=== PATIENT | female | born 1980 | race Caucasian/White ===

== ENCOUNTER 2017-03-14 15:14 | Emergency (ER) | payer MEDICAID ==
[2017-03-14 15:58] LABS: URINE APPEARANCE CLEAR; URINE BILIRUBIN NEGATIVE (NEGATIVE); URINE BLOOD NEGATIVE (NEGATIVE); URINE COLOR YELLOW; URINE GLUCOSE (UA) NEGATIVE (NEGATIVE); URINE KETONE NEGATIVE (NEGATIVE); URINE LEUKOCYTE ESTERASE NEGATIVE (NEGATIVE); URINE NITRITE NEGATIVE (NEGATIVE); URINE PROTEIN NEGATIVE (NEGATIVE); URINE UROBILINOGEN 0.2 E.U./dL (0.20 - 1.00)
[2017-03-14 16:50] LABS: HCG,QUALITATIVE URINE NEGATIVE (NEGATIVE)
[2017-03-14] MEDS ORDERED: KETOROLAC 30 MG/ML VIAL IVP ONE (17:01)
[2017-03-14] MEDS ORDERED: 0.9 % SODIUM CHLORIDE 1,000 ML BAG IV ONE (17:01)
--- NOTE | 2017-03-14 17:34 | Emergency Department Record ---
History of Present Illness - General Chief complaint: Flank Pain Stated complaint: THINKS SHE HAS KIDNEY INFECTION Time Seen by Provider: 03/14/17 16:44 Source: Patient Mode of Arrival: Ambulatory Limitations: No limitations - History of Present Illness Initial comments: pt has had l flank pain for 7 days. it is unlike anything she has ever had. she states the pain is not reproducible , that it is deep Onset/Timin -: Days(s) Radiation: L flank, LLQ Severity: Mild Severity scale (1-10): 6 Quality: Burning, Dull, Stabbing Consistency: Constant, Getting worse Improves with: None Worsens with: Movement Patient : No Associated Symptoms: Denies other symptoms Travel Screening - Travel/Exposure Within Last 30 Days Have you traveled within the last 30 days?: No - Travel/Exposure Within Last Year Have you traveled outside the [place] in the last year?: No - Additonal Travel Details Have you been exposed to anyone with a communicable illness?: No - Travel Symptoms Symptom Screening: None Review of Systems Reviewed: No additional complaints except as noted below Constitutional: Reports: As per HPI. Denies: Chills, Fever, Malaise, Night sweats, Weakness, Weight change Eyes: Reports: As per HPI. Denies: Eye discharge, Eye pain, Photophobia, Vision change ENT: Reports: As per HPI. Denies: Congestion, Dental pain, Ear pain, Epistaxis , Hearing loss, Throat pain Respiratory: Reports: As per HPI. Denies: Cough, Dyspnea, Hemoptysis, Stridor, Wheezes Cardiovascular: Reports: As per HPI. Denies: Arrhythmia, Chest pain, Dyspnea on exertion, Edema, Murmurs, Orthopnea, Palpitations, Paroxysmal nocturnal dyspnea, Rheumatic Fever, Syncope Endocrine: Reports: As per HPI. Denies: Fatigue, Heat or cold intolerance, Polydipsia, Polyuria Gastrointestinal: Reports: As per HPI. Denies: Abdominal pain, Constipation, Diarrhea, Hematemesis, Hematochezia, Melena, Nausea, Vomiting Genitourinary: Reports: As per HPI. Denies: Abnormal menses, Discharge, Dyspareunia, Dysuria, Frequency, Hematuria, Incontinence, Retention, Urgency Musculoskeletal: Reports: As per HPI. Denies: Arthralgia, Back pain, Gout, Joint swelling, Myalgia, Neck pain Skin: Reports: As per HPI. Denies: Bruising, Change in color, Change in hair/ nails, Lesions, Pruritus, Rash Neurological: Reports: As per HPI. Denies: Abnormal gait, Confusion, Headache, Numbness, Paresthesias, Seizure, Tingling, Tremors, Vertigo, Weakness Psychiatric: Reports: As per HPI. Denies: Anxiety, Auditory hallucinations, Depression, Homicidal thoughts, Suicidal thoughts, Visual hallucinations Hematological/Lymphatic: Reports: As per HPI. Denies: Anemia, Blood Clots, Easy bleeding, Easy bruising, Swollen glands Past Medical History - SOCIAL HISTORY Smoking Status: Current every day smoker Alcohol Use: Occasional Drug Use: None - RESPIRATORY Hx Respiratory Disorders: No - CARDIOVASCULAR Hx Cardio Disorders: No - NEURO Hx Neuro Disorders: Yes Hx Headaches: Yes (cluster headaches) - GI Hx GI Disorders: No - Hx Genitourinary Disorders: No - ENDOCRINE Hx Endocrine Disorders: No - MUSCULOSKELETAL Hx Back Injury: Yes - PSYCH Hx Psych Problems: Yes Hx Anxiety: Yes Hx Depression: Yes - HEMATOLOGY/ONCOLOGY Hx Hematology/Oncology Disorders: No Family Medical History Any Significant Family History?: No Physical Exam - General General Appearance: Alert, Oriented x3, Cooperative, Mild distress - Head Head exam: Normal inspection - Eye Eye exam: Normal appearance, PERRL, EOMI Pupils: Normal accommodation - ENT ENT exam: Normal exam, Mucous membranes moist, Normal external ear exam, Normal orophraynx Ear exam: Normal external inspection. negative: External canal tenderness Nasal Exam: Normal inspection. negative: Discharge, Sinus tenderness Mouth exam: Normal external inspection, Tongue normal Teeth exam: Normal inspection. negative: Dental caries Throat exam: Normal inspection. negative: Tonsillar erythema, Tonsillar exudate - Neck Neck exam: Normal inspection, Full ROM. negative: Tenderness - Respiratory Respiratory exam: Normal lung sounds bilaterally. negative: Respiratory distress - Cardiovascular Cardiovascular Exam: Regular rate, Normal rhythm, Normal heart sounds - GI/Abdominal GI/Abdominal exam: Soft, Normal bowel sounds. negative: Tenderness - Rectal Rectal exam: Deferred - exam: Deferred - Extremities Extremities exam: Normal inspection, Full ROM, Normal capillary refill. negative: Tenderness - Back Back exam: Reports: Normal inspection, CVA tenderness (L), Full ROM. Denies: Muscle spasm, Rash noted, Tenderness - Neurological Neurological exam: Alert, CN II-XII intact, Normal gait, Oriented X3 - Psychiatric Psychiatric exam: Normal affect, Normal mood - Skin Skin exam: Dry, Intact, Normal color, Warm Course Vital Signs 03/14/17 16:24 Temperature 98.0 F Pulse Rate 76 Respiratory 18 Rate Blood Pressure 101/71 Pulse Ox 99 - Reevaluation(s) Reevaluation #1: 03/14/17 19:02 pt feels much better Medical Decision Making - Lab Data Result diagrams: 03/14/17 17:45 03/14/17 17:45 Lab Results 03/14/17 Range/Units 15:35 Urine Color Yellow Urine Appearance Clear Urine pH 6.5 (5.0-8.0) Ur Specific [place] 1.010 (1.002-1.030) Urine Protein Negative (NEGATIVE) Urine Glucose (UA) Negative (NEGATIVE) Urine Ketones Negative (NEGATIVE) Urine Blood Negative (NEGATIVE) Urine Nitrite Negative (NEGATIVE) Urine Bilirubin Negative (NEGATIVE) Urine Urobilinogen 0.2 (0.20 - 1.00) E.U./dL Ur Leukocyte Esterase Negative (NEGATIVE) Urine HCG, Qual Negative (NEGATIVE) Disposition Disposition: Discharge Clinical Impression: Flank pain Disposition: Home, Self-Care Condition: (1) Good Instructions: Flank Pain (ED) Additional Instructions: follow up with family doctor. return sooner if worse. parker for pain Quality - Quality Measures Quality Measures: N/A - Blood Pressure Screening Does Patient Have Any of the Following: No Blood Pressure Classification: Normal BP Reading Systolic Measurement: 101 Diastolic Measurement: 71 Screening for High Blood Pressure: < Normal BP, F/U Not Required > [G8783]
[2017-03-14 18:32] LABS: BASO % 0.3 % (0-6); EOS % 2.2 % (0-6); GRAN % 55.4 % (47-80); HEMATOCRIT 44.5 % (35.0-47.0); HEMOGLOBIN 14.8 gm/dl (11.6-16.0); LYMPH % 36.6 % (16-45); MEAN CELL VOLUME 93.1 fl (81-97); MEAN CORPUSCULAR HGB CONC 33.3 g/dl (32-36); MEAN PLATELET VOLUME 9.3 fl (7.4-10.4); MONO % 5.5 % (0-9); PLATELET COUNT 235 K/uL (130-400); RED BLOOD COUNT 4.78 M/uL (3.80-5.40); RED CELL DISTRIBUTION WIDTH 13.1 % (11.5-14.5); WHITE BLOOD COUNT W/O DIFF 6.9 K/uL (4.2-12.2)
[2017-03-14 18:47] LABS: BLOOD UREA NITROGEN 11 mg/dL (6-20); CREATININE 0.6 mg/dL (0.5-0.9); EST GLOMERULAR FILTRATION RATE > 60 mL/min
[2017-03-14 18:50] LABS: GLUCOSE,RANDOM 90 mg/dL (74-109)
--- NOTE | 2017-03-15 08:29 | CT SCAN REPORT ---
EXAM: CT OF THE ABDOMEN AND PELVIS HISTORY: LEFT LOWER BACK PAIN, LEFT FLANK PAIN. TECHNIQUE: CT of the abdomen and pelvis was performed without intravenous or oral contrast. Comparison: None. FINDINGS: There are three tiny lesions at the left lung base measuring about 3 and 4 mm in size. The lung bases otherwise are unremarkable. There are no renal calculi seen. No hydronephrosis. There are a few tiny pelvic calcifications most likely representing phleboliths with no definite ureteral calculus seen. There is no contour deforming renal mass. The unenhanced liver and spleen are unremarkable. No pancreatic mass or inflammatory change. The bile ducts are not dilated and there are no calcified gallstones. No adrenal lesion seen. There is no aortic aneurysm. No periaortic mass or adenopathy. There are no dilated bowel loops. No CT evidence for appendicitis. There is no pelvic mass, abscess, or adenopathy. There is a tiny amount of free fluid likely physiologic. IMPRESSION: 1. NO DEFINITE RENAL OR URETERAL CALCULI. NO HYDRONEPHROSIS. IF URINARY TRACT ABNORMALITY REMAINS OF CONTINUED CLINICAL CONCERN, CT UROGRAPHY COULD BE OBTAINED. 2. THREE TINY NODULES SEEN AT THE LEFT LUNG BASE ARE PROBABLY BENIGN. FOLLOW- UP CHEST CT IN ONE YEAR'S TIME RECOMMENDED. 3. SMALL AMOUNT OF FREE FLUID IN THE PELVIS LIKELY PHYSIOLOGIC. 4. NO ACUTE ABDOMINAL OR PELVIC PROCESS IDENTIFIED. JOB NUMBER: [id number] [facility]
== END 2017-03-14 19:21 | disposition home or self-care (01) ==
LOC: ER 15:14
DX: R10.32 Left lower quadrant pain (principal); F17.210 Nicotine dependence, cigarettes, uncomplicated
CPT/HCPCS: 99284 ×2; 96374; 85025; 80048; 81003; 81025; 74176; J1885; J7030

== ENCOUNTER 2017-07-09 15:38 | Emergency (ER) | payer MEDICAID ==
--- NOTE | 2017-07-09 15:58 | Emergency Department Record ---
History of Present Illness - General Chief Complaint: Ankle/Foot Injury Stated Complaint: INJ LEFT ANKLE Time Seen by Provider: 07/09/17 15:53 Source: Patient Mode of Arrival: Wheelchair Limitations: No limitations - History of Present Illness Initial Comments: The patient is here due to twisting her ankle 9 hours ago and injuring it. She then was able to continue working her entire shift but now the ankle is more painful so she would like to be evaluated in the ER. The patient denies any other injuries. MD Complaint: Ankle injury Onset/Timin -: Hour(s) Type of Injury: Unknown Place: Home, Street/outdoors Severity scale (1-10): 4 Improves With: Nothing Worsens With: Palpation, Weight bearing Associated Symptoms: Unable to bear weight - Related Data Home Medications Medication Instructions Recorded Confirmed Last Taken Fluoxetine HCl [Prozac] 20 mg PO DAILY 07/09/17 07/09/17 Unknown Allergies Allergy/AdvReac Type Severity Reaction Status Date / Time No Known Drug Allergies Allergy Verified 12/30/15 18:19 Travel Screening - Travel/Exposure Within Last 30 Days Have you traveled within the last 30 days?: No Review of Systems Constitutional: Denies: Chills, Fever Past Medical History - SOCIAL HISTORY Smoking Status: Current every day smoker Alcohol Use: None Drug Use: None - RESPIRATORY Hx Respiratory Disorders: No - CARDIOVASCULAR Hx Cardio Disorders: No - NEURO Hx Neuro Disorders: Yes Hx Headaches: Yes - GI Hx GI Disorders: No - Hx Genitourinary Disorders: No - ENDOCRINE Hx Endocrine Disorders: No - MUSCULOSKELETAL Hx Musculoskeletal Disorders: Yes Hx Back Injury: Yes - PSYCH Hx Psych Problems: Yes Hx Anxiety: Yes Hx Depression: Yes - HEMATOLOGY/ONCOLOGY Hx Hematology/Oncology Disorders: No Hx Anemia: No Hx Blood Disorders: No Hx Clotting Problems: No Family Medical History Any Significant Family History?: Yes Family Hx Comment (NOT TO BE USED IN PLACE OF ITEMS BELOW): Father with CMT, she has tested negative. Hx Cancer: Grandparents Physical Exam - General General Appearance: Alert, Cooperative, No acute distress - Head Head exam: Atraumatic - Eye Eye exam: Normal appearance, PERRL - Extremities Extremities exam: Full ROM, Tenderness, Other (The L ankle is very stable.). negative: Normal inspection (There is trace swelling in the anterior TFL area with mild tenderness. ), Calf tenderness, Joint swelling, Pedal edema Course Vital Signs 07/09/17 15:48 Temperature 98.3 F Pulse Rate [ 69 Pulse Ox Probe] Respiratory 18 Rate Blood Pressure 106/74 [Left Arm] Pulse Ox 100 - Reevaluation(s) Reevaluation #1: I did discuss the neg xrays with the patient and the need for F/U if not better. 07/09/17 16:22 Medical Decision Making - Data Complexity MDM Data: X-Ray Ordered and/or Reviewed - Radiology Data Radiology results: Report reviewed (L ankle: Neg.) Disposition Disposition: Discharge Clinical Impression: Left ankle sprain Qualifiers: Encounter type: initial encounter Involved ligament of ankle: unspecified ligament Qualified Code(s): S93.402A - Sprain of unspecified ligament of left ankle, initial encounter Disposition: Home, Self-Care Condition: (2) Stable Instructions: Ankle Sprain (ED) Additional Instructions: Please take your home pain medicines as needed. Please ice and elevate the ankle for 2 days and see your family doctor if not better in 3-4 days. Forms: Patient Portal Access Time of Disposition: 16:24 Quality - Quality Measures Quality Measures: N/A - Blood Pressure Screening View Details: Yes Does Patient Have Any of the Following: No Blood Pressure Classification: Normal BP Reading Systolic Measurement: 106 Diastolic Measurement: 74 Screening for High Blood Pressure: < Normal BP, F/U Not Required > [G8783]
--- NOTE | 2017-07-11 12:35 | RADIOLOGY REPORT ---
DATE: 07/09/2017 at 1610 hours. EXAM: LEFT ANKLE. HISTORY: Pain. TECHNIQUE: Three views of the left ankle are obtained. FINDINGS: There is no evidence of fracture or dislocation. Bone density is normal. IMPRESSION: NEGATIVE. JOB NUMBER: [id number] [facility]
== END 2017-07-09 16:25 | disposition home or self-care (01) ==
LOC: ER 15:38
DX: S93.402A Sprain of unspecified ligament of left ankle, initial encounter (principal); X50.1XXA Overexertion from prolonged static or awkward postures, initial encounter; Y92.410 Unspecified street and highway as the place of occurrence of the external cause; F17.210 Nicotine dependence, cigarettes, uncomplicated
CPT/HCPCS: 99283